=== PATIENT | male | born 1970 | race Caucasian/White ===

== ENCOUNTER → 2021-10-26 13:37 | Outpatient (CLI) | payer OTHER, SELFPAY ==
--- NOTE | 2021-10-26 | DI.RAD_ITS ---
Exam(s) XR FINGER RT RING EXAM: XR FINGER RT RING CLINICAL HISTORY: TENDON DISORDER OF RT HAND, M67.941. TECHNIQUE: 2D digital imaging was performed. Three views. COMPARISON: No exams were available for comparison FINDINGS: BONES: No acute fracture is present. No bony destructive lesion is seen. JOINTS: No dislocation present. SOFT TISSUE: Normal. IMPRESSION: No evidence of acute fracture, dislocation, or subluxation. DATA REPOSITORY: RADIATION DOSE DELIVERED:
--- OUTSIDE RECORDS SUMMARY | 2021-10-26 13:41 | XMS_ITS ---
:1970 Author Care Team Providers Name Role Phone Vanda Tank Primary Care Provider Unavailable Allergies Code Code System Name Reaction Severity Status Onset NKDA ? Medications Name Status Start Date Stop Date ? ? ibuprofen 600 mg tablet Active ? Not avai lable Take 1 tablet 3 times a day by oral route as needed. Medrol (Stu) 4 mg tablets in a dose pack Active ? Not available Take 1 dose pk by oral route for 6 days. Please take as written on package. 6 ta bs on day 1, 5 tabs on day 2, 4 tabs on days 3, 3 tabs on day 4, 2 tabs on day 5 and 1 tab on day 6. trazodone Active ? Not available Problems No Known Problems Procedures Date Name Performed by ? 01/19/2021 XR, Foot, 3 or More View [facility] (Internal) [address] [place] [address] (Work Place) 02/16/2021 XR, Foot, 3 or More View [facility] (Internal) [address] [place] [address] (Work Place) Results Lab Results None recorded. Past Encounters 02/16/2021 Closed Fracture of Metatarsal Bone Tank Dc MD: [address] [place] [address], [facility] [address], [place] [address], Ph. 01/19/2021 Closed Fracture of Metatarsal Bone Tank Dc MD: [address] [place] [address], [facility] [address], [place] [address], Ph. 12/22/2020 Closed Fracture of Fifth Metatarsal Bone Tank Dc MD: [address] [place] [address], [facility] [address] [address], Ph. Social History Tobacco Smoking Status Never Smoker Vaccine List None recorded. Plan of Care Reminders Provider Appointments None recorded. ? ? Lab None recorded. ? ? Referral None recorded. ? ? Procedures None recorded. ? ? Surgeries None recorded. ? ? Imaging None recorded. ? ? Vitals Height Weight BMI 172.72 cm 88.45 kg 29.6 kg/m2
== END ==
PROVIDERS: Visit Provider Nurse Practitioner Family
DX: M79.644 Pain in right finger(s) (principal); M67.843 Other specified disorders of tendon, right hand
CPT/HCPCS: 73140